=== PATIENT | male | born 1935 | race Caucasian/White ===

== ENCOUNTER 2020-10-30 09:22 | Emergency (ER) | payer OTHER ==
[~2020-10-30] VITALS: Ht 167.6 cm; Wt 68.0 kg
--- NOTE | 2020-10-30 09:11 | NUR ---
[employer] CALLED TO BEDSIDE
--- NOTE | 2020-10-30 09:17 | NUR ---
USING A GLIDESCOPE PATIENT SUCCESSFULLY INTUBATED BY DR. BRIAN MOJICA WITH AN ENDOTRACHEAL #7.5 SECURED AT 22cm TEETH/GUM LINE WITH AN ANCHOR FAST CUFF PRESSURE INFLATED WITH 8cc VIA A 10cc SYRINGE PLACEMENT CONFIRMED WITH A CO2 DETECTOR (YELLOW) AUSCULTATION BILATERAL LUNGS MOSER APEX TO BASES WITH GOOD AERATION THROUGHOUT CXR TO FOLLOW Addendum: 10/30/20 at 1132 by Kelvin Fregoso RT ETT PLACEMENT 24cm
--- NOTE | 2020-10-30 09:22 | NUR ---
AT 0912 PT TAKEN TO ER BED 10. RT, RN, AT BEDSIDE.
--- NOTE | 2020-10-30 09:22 | NUR ---
0913-PT PAD PLACED, CRASH CART AT PT BEDSIDE, PT INTUBATED AT 0917 NO RX PRIOR TO INTUBATION PER MD. AT 0920 ATIVAN 1MG AND FENTANYL 50MCG ORDERED AND GIVEN. IV ESTABLISHED TO RIGHT AC 20G AND RIGHT HAND 20G BLOOD DRAWN. WALKED TO LAB.
[2020-10-30] MEDS ORDERED: LORazepam 2 MG/ML VIAL IVP ONE (09:25)
[2020-10-30] MEDS ORDERED: fentaNYL citrate 0.05 MG/ML VIAL IVP ONE ×2 (09:25→12:00)
--- NOTE | 2020-10-30 09:25 | NUR ---
XRAY AT PT BEDSIDE.
--- NOTE | 2020-10-30 09:28 | NUR ---
POST INTUBATION PLACED ON A [employer] VENTILATOR PLUGGED INTO RED OUTLET TOLERATING WELL WITHOUT ADVERSE REACTIONS NOTED TO AN ENDOTRACHEAL TUBE #7.5 SECURED AT 24cm TEETH/GUM LINE WITH AN ANCHOR FAST CUFF PRESSURE CHECKED NOTED AMBU BAG NOTED AT BEDSIDE SEDATED NO DISTRESS NOTED EQUAL CHEST RISE AIRWAY PATENT DR. BRIAN MOJICA REVIEWED VENTILATOR SETTINGS NO CHANGED MADE
[2020-10-30 09:36] VITALS: BP 158/80
[2020-10-30] MEDS ORDERED: PROPOFOL 1000 MG/100 ML PREMIX 100 ML IV ONE ×4 (09:50→23:47)
--- NOTE | 2020-10-30 09:58 | NUR ---
85 Y/O MALE BIBA FROM PARKING LOT. PT DROVE PT TO ER IN CAR, STATED PT BECAME ALOC AND HAD SOB UPON ARRIVING. PT HAS A STRONG PULSE AT FEMORAL, CAROTID, AND RADIAL SITE, SOME SOB NOTED. , RT AT PT BEDSIDE. PMH: UNOBTAINABLE ALLERGIES: UNOBTAINABLE
[2020-10-30 10:00] LABS: BASOPHILS % (AUTO) 0.2 % (0.0-2.0); EOSINOPHILS # (AUTO) 0.2 K/uL (0-0.4); EOSINOPHILS % (AUTO) 1.5 % (0.0-4.0); HEMATOCRIT 43.1 % (36-52); HEMOGLOBIN 14.2 g/dL (12.0-18.0); LYMPHOCYTES # (AUTO) 5.8 K/uL (2.0-11.5); LYMPHOCYTES % (AUTO) 41.4 % (20.5-51.1); MEAN CORPUSCULAR HEMOGLOBIN 34 pg (27-31); MEAN CORPUSCULAR HGB CONC 33 g/dL (33-37); MEAN CORPUSCULAR VOLUME 102.9 fL (80-94); MONOCYTES # (AUTO) 1.5 K/uL (0.8-1.0); MONOCYTES % (AUTO) 10.4 % (1.7-9.3); NEUTROPHILS # (AUTO) 6.6 K/uL (1.8-7.7); NEUTROPHILS % (AUTO) 46.5 % (42.2-75.2); PLATELET COUNT (AUTO) 242 K/uL (140-450); RED BLOOD CELL COUNT(AUTO) 4.19 MIL/uL (4.20-6.10); RED CELL DISTRIBUTION WIDTH 14.2 % (11.6-13.7); WHITE BLOOD COUNT (AUTO) 14.1 K/uL (4.8-10.8)
[2020-10-30 10:20] LABS: PROTHROMBIN TIME 10.1 secs (10.8-13.4)
[2020-10-30 10:24] LABS: ALBUMIN 3.5 g/dL (3.4-5.0); ANION GAP 20.5 (8-16); ASPARTATE AMINOTRANSFERASE 15 U/L (15-37); CARBON DIOXIDE 17.9 mmol/L (21-32); CHLORIDE 108 mmol/L (98-107); CREATININE 1.5 mg/dL (0.6-1.3); GLUCOSE 148 mg/dL (74-106); LIPASE 117 U/L (73-393); POTASSIUM 3.4 mmol/L (3.5-5.1); SODIUM SERUM 143 mmol/L (136-145); TOTAL BILIRUBIN 0.6 mg/dL (0.0-1.0); UREA NITROGEN, BLOOD 20 mg/dL (7-18)
--- NOTE | 2020-10-30 10:26 | NUR ---
TRANSFERRED TO RADIOLOGY FOR CT SCAN OF HEAD REMOVED FORM VENTILATOR PLACED ON SUPPLEMENTAL OXYGEN AT 15 LPM VIA E-TANK (ADEQUATE PSI) TO HME/INLINE SUCTION CATHETER/ENDOTRACHEAL TUBE BAG DEPRESSION EVERY SIX SECONDS THROUGHOUT TRANSFER AND PROCEDURE TOLERATED WELL WITHOUT ADVERSE REACTIONS NOTED SATURATION 99%-100% HR 60
[2020-10-30 10:37] LABS: APPEARANCE,URINE CLEAR (CLEAR); BILIRUBIN,URINE NEGATIVE (NEGATIVE); BLOOD, URINE NEGATIVE (NEGATIVE); COLOR,URINE YELLOW (YELLOW); LEUKOCYTE ESTERASE ,URINE NEGATIVE (NEGATIVE); NITRITE, URINE NEGATIVE (NEGATIVE); PH,URINE 5.5 (5.0-9.0); UGLUCOSE NEGATIVE (NEGATIVE)
--- NOTE | 2020-10-30 10:42 | NUR ---
PT TAKEN TO CT VIA GURNEY ACCOMPANIED WITH RT AND RN.
[2020-10-30] MEDS ORDERED: DEXAMETHASONE 10 MG/ML VIAL IVP ONE (11:05)
[2020-10-30] MEDS ORDERED: levETIRAcetam 1,000 MG in NACL 0.9% 100 ML IV ONE (11:05)
[2020-10-30 11:30] VITALS: BP 166/74
--- NOTE | 2020-10-30 11:30 | NUR ---
SEDATED NO DISTRESS NOTED GOOD CHEST RISE FEW RALES LLL CLEAR [place] LML RIGHT SIDE DEEP TRACHEAL SUCTION FOR MINUTE RED/YELLOW SECRETION UNABLE TO OBTAIN SUFFICIENT AMOUNT OF SPUTUM FOR VAP PROTOCOL
--- NOTE | 2020-10-30 11:42 | NUR ---
RT AT PT BEDSIDE FOR ABGS.
--- NOTE | 2020-10-30 12:07 | NUR ---
REVIEWED ABG SAMPLE REPORT WITH DR. BRIAN BACON NO NEW ORDERS
[2020-10-30 13:45] VITALS: BP 166/74
--- NOTE | 2020-10-30 13:45 | NUR ---
SEDATED NO DISTRESS NOTED EQUAL CHEST RISE GOOD AERATION THROUGHOUT BILATERAL LUNG FIELD AIRWAY PATENT UNABLE TO OBTAIN SPUTIM FOR VAP PROTOCOL Addendum: 10/30/20 at 1356 by Kelvin Fregoso RT REVIEWED ABG SAMPLE REPORT SATURATION 100% ON FIO2 OF 100% PEEP 5cmH2O DECREASED FIO2 TO 50% DEN NOTIFIED
--- NOTE | 2020-10-30 13:58 | NUR ---
RT AT PT BEDSIDE, VENT SETTINGS CHANGED TO 50% FIO2. MD MADE AWARE. VSS. WILL CONTINUE TO MONITOR.
--- NOTE | 2020-10-30 14:40 | NUR ---
PT RESTING SUPINE, EYES CLOSED, RASS -4 VSS WILL CONTINUE TO MONITOR.
--- NOTE | 2020-10-30 15:59 | NUR ---
PT EYES CLOSED, VISIBLE EQUAL RISE AND FALL OF CHEST, VSS, WILL CONTINUE TO MONITOR.
[2020-10-30] MEDS ORDERED: BUDE9TAB PO (16:08)
[2020-10-30] MEDS ORDERED: TERA5CAP8 PO (16:08)
[2020-10-30] MEDS ORDERED: ASPI-1205 PO (16:08)
[2020-10-30] MEDS ORDERED: CARV12.5 PO (16:08)
[2020-10-30] MEDS ORDERED: ATOR40TA PO (16:08)
--- NOTE | 2020-10-30 16:52 | NUR ---
PT RASS -4, VISIBLE EQUAL RISE AND FALL OF CHEST, VSS, WILL CONTINUE TO MONITOR.
[2020-10-30 17:38] VITALS: BP 137/76
--- NOTE | 2020-10-30 17:38 | NUR ---
STABLE NO DISTRESS NOTED GOOD CHEST RISE AIRWAY PATENT
--- NOTE | 2020-10-30 17:42 | NUR ---
RT AT PT BEDSIDE, DECREASED FI02 AT 40% PER RT. RASS -4, VSS, WILL CONTINUE TO MONITOR.
--- NOTE | 2020-10-30 18:00 | NUR ---
PT EYES CLOSED RASS-4, VISIBLE EQUAL RISE AND FALL OF CHEST, VSS, WILL CONTINUE TO MONITOR.
--- NOTE | 2020-10-30 18:22 | NUR ---
CHANGED PATIENT SHEETS AND INTO CLEAN GOWN, REPOSITIONED, VSS, WILL CONTINUE TO MONITOR.
--- NOTE | 2020-10-30 18:37 | NUR ---
EMPTIED 850CC OF CLEAR, YELLOW URINE NO SEDIMENT NOTED.
--- NOTE | 2020-10-30 18:56 | NUR ---
RT AT PT BEDSIDE FI02 LOWERED TO 30%, RASS-4, VSS, WILL CONTINUE TO MONITOR.
--- NOTE | 2020-10-30 19:19 | NUR ---
GAVE REPORT TO CORDELL VASQUEZ. TRANSFER OF CARE AT THIS TIME.
--- NOTE | 2020-10-30 19:19 | NUR ---
RECEIVED REPORT FROM AMARJIT LANDA, FOR CONTINUITY OF CARE.
--- NOTE | 2020-10-30 19:31 | NUR ---
SPOKE TO DR. CABALLERO FROM [facility] REGARDING PT INFORMATION. GAVE AN UPDATE REGARDING PT'S STATUS
--- NOTE | 2020-10-30 20:30 | NUR ---
PT IS SEDATED ON PROPOFOL DRIP. CHEST RISE AND FALL UNEVEN AND UNLABORED. NO APPARENT DISTRESS AT THIS TIME. RASS SCORE OF -3
[2020-10-30] MEDS ORDERED: levETIRAcetam 100 MG/ML VIAL IV ONE (21:13)
[2020-10-30] MEDS: levETIRAcetam 500 MG in NACL 0.9% 100 ML IV SCH (21:27)
--- NOTE | 2020-10-30 21:30 | NUR ---
PT IS SEDATED ON PROPOFOL DRIP. CHEST RISE AND FALL UNEVEN AND UNLABORED. NO APPARENT DISTRESS AT THIS TIME. RASS SCORE OF -3
--- NOTE | 2020-10-30 22:30 | NUR ---
PT IS SEDATED ON PROPOFOL DRIP. CHEST RISE AND FALL UNEVEN AND UNLABORED. NO APPARENT DISTRESS AT THIS TIME. RASS SCORE OF -3
--- NOTE | 2020-10-30 23:30 | NUR ---
PT IS SEDATED ON PROPOFOL DRIP. CHEST RISE AND FALL UNEVEN AND UNLABORED. NO APPARENT DISTRESS AT THIS TIME. WILL CONTINUE TO MONITOR. RASS SCORE OF -3
[2020-10-30 23:46] VITALS: BP 159/81
--- NOTE | 2020-10-31 01:30 | NUR ---
PT IS SEDATED ON PROPOFOL DRIP. CHEST RISE AND FALL UNEVEN AND UNLABORED. NO APPARENT DISTRESS AT THIS TIME. WILL CONTINUE TO MONITOR. RASS SCORE OF -2
--- NOTE | 2020-10-31 02:30 | NUR ---
PT IS SEDATED ON PROPOFOL DRIP. CHEST RISE AND FALL UNEVEN AND UNLABORED. NO APPARENT DISTRESS AT THIS TIME. WILL CONTINUE TO MONITOR. RASS SCORE OF -1
--- NOTE | 2020-10-31 03:30 | NUR ---
PT IS SEDATED ON PROPOFOL DRIP. INCREASED DRIP RATE BECAUSE PT IS GETTING AGITATED. CHEST RISE AND FALL UNEVEN AND UNLABORED. NO APPARENT DISTRESS AT THIS TIME. WILL CONTINUE TO MONITOR. RASS SCORE OF +1
--- NOTE | 2020-10-31 05:10 | NUR ---
PT IS SEDATED ON PROPOFOL DRIP. DECREASED RATE OF PROPOFOL DRIP BACK TO 30MCG/KG/MIN CHEST RISE AND FALL UNEVEN AND UNLABORED. NO APPARENT DISTRESS AT THIS TIME. WILL CONTINUE TO MONITOR. RASS SCORE OF -3
--- NOTE | 2020-10-31 07:13 | NUR ---
Pt report given to ALFREDO LANDA. Transfer of care at this time.
[2020-10-31] MEDS ORDERED: NACL 0.9% 1,000 ML IV ONE (07:20)
[2020-10-31] MEDS ORDERED: PROPOFOL 1000 MG/100 ML PREMIX 100 ML IV ONE ×3 (07:20→14:45)
--- NOTE | 2020-10-31 07:30 | NUR ---
400CC OF CLEAR, YELLOW URINE DRAINED FROM FC AT THIS TIME.
[2020-10-31 07:49] VITALS: BP 147/81
--- NOTE | 2020-10-31 07:49 | NUR ---
RECEIVED ON A [employer] R860 VENTILATOR PLUGGED INTO RED OUTLET TOLERATING WELL WITHOUT ADVERSE REACTIONS NOTED TO AN ENDOTRACHEAL TUBE #7.0 SECURED AT 24cm TEETH/GUM LINE WITH AN ANCHOR FAST CUFF PRESSURE CHECKED NOTED AMBU BAG NOTED AT BEDSIDE SEDATED NO DISTRESS NOTED EQUAL CHEST RISE DEEP TRACHEAL SUCTION FOR SMALL SCATTERED THIN YELLOW SECRETIONS AIRWAY PATENT
[2020-10-31] MEDS: levETIRAcetam 500 MG in NACL 0.9% 100 ML IV SCH (08:56)
--- NOTE | 2020-10-31 09:23 | NUR ---
ORAL CARE AND REPOSITIONING (TURNED TO RIGHT SIDE) DONE WITH ASSISTANCE OF STUDENT NURSES.
--- NOTE | 2020-10-31 09:54 | NUR ---
UPDATED [facility], REGARDING NO AVAILABILITY OF A ROOM FOR TRANSFER TO [facility].
[2020-10-31 11:18] VITALS: BP 148/58
--- NOTE | 2020-10-31 11:18 | NUR ---
STABLE NO SOB NOTED GOOD CHEST RISE AND AERATION THROUGHOUT BILATERAL LUNG MOSER AIRWAY PATENT
--- NOTE | 2020-10-31 12:30 | NUR ---
PT IS SEDATED ON PROPOFOL DRIP 25 MCG/KG/MIN. CHEST RISE AND FALL EVEN AND UNLABORED. NO APPARENT DISTRESS AT THIS TIME. WILL CONTINUE TO MONITOR. RASS SCORE OF -3.
[2020-10-31 12:49] LABS: ANION GAP 12.8 (8-16); BASOPHILS % (AUTO) 0.1 % (0.0-2.0); CARBON DIOXIDE 23.4 mmol/L (21-32); CHLORIDE 111 mmol/L (98-107); EOSINOPHILS % (AUTO) 0.2 % (0.0-4.0); GLUCOSE 85 mg/dL (74-106); HEMATOCRIT 37.4 % (36-52); HEMOGLOBIN 12.6 g/dL (12.0-18.0); LYMPHOCYTES # (AUTO) 2.2 K/uL (2.0-11.5); LYMPHOCYTES % (AUTO) 16.2 % (20.5-51.1); MEAN CORPUSCULAR HEMOGLOBIN 34 pg (27-31); MEAN CORPUSCULAR HGB CONC 34 g/dL (33-37); MEAN CORPUSCULAR VOLUME 100.3 fL (80-94); MONOCYTES # (AUTO) 1.1 K/uL (0.8-1.0); MONOCYTES % (AUTO) 8.4 % (1.7-9.3); NEUTROPHILS # (AUTO) 10.3 K/uL (1.8-7.7); NEUTROPHILS % (AUTO) 75.1 % (42.2-75.2); PLATELET COUNT (AUTO) 193 K/uL (140-450); POTASSIUM 3.2 mmol/L (3.5-5.1); RED BLOOD CELL COUNT(AUTO) 3.73 MIL/uL (4.20-6.10); RED CELL DISTRIBUTION WIDTH 13.8 % (11.6-13.7); SODIUM SERUM 144 mmol/L (136-145); UREA NITROGEN, BLOOD 20 mg/dL (7-18); WHITE BLOOD COUNT (AUTO) 13.7 K/uL (4.8-10.8)
[2020-10-31 14:18] VITALS: BP 150/55
--- NOTE | 2020-10-31 14:18 | NUR ---
STABLE SEDATED GOOD CHEST RISE ENDOTRACHEAL SUCTION FOR LARGE THIN PALE YELLOW SECRETIONS AIRWAY PATENT
[2020-10-31] MEDS ORDERED: DEXAMETHASONE 4 MG/ML VIAL IVP ONE (14:20)
--- NOTE | 2020-10-31 15:20 | NUR ---
Patient to be transferred to [facility]. Is being transferred due to HIGHER LEVEL OF CARE. Receiving facility has accepting physician and available space. ER physician has signed transfer form. Patient or responsible libertarian has agreed to transfer and signed form. Patient belongings inventoried and will be sent with patient. Copy of nursing notes, lab reports, EKG, Physicians Orders and X-rays to be sent with patient. Report called to at receiving facility. [facility] ambulance service has been called for transfer. ETA is 1530.
[2020-10-31 16:10] VITALS: BP 162/87
[2020-10-31] MEDS ORDERED: DEXAMETHASONE 4 MG/ML VIAL IVP SCH (18:00)
[2020-10-31] MEDS ORDERED: levETIRAcetam 500 MG in NACL 0.9% 100 ML IV SCH (21:00)
== END 2020-10-31 16:10 | disposition short-term general hospital (02) ==
LOC: MED 09:22
DX: R55 Syncope and collapse (principal); Z20.822 Contact with and (suspected) exposure to COVID-19; R41.82 Altered mental status, unspecified; J96.90 Respiratory failure, unspecified, unspecified whether with hypoxia or hypercapnia; I10 Essential (primary) hypertension; Z95.1 Presence of aortocoronary bypass graft
CPT/HCPCS: 31500; 36415; 36600; 70450; 71045; 80048; 80053; 81003; 82803; 83605; 83690; 83880; 84484; 85025; 85610; 87040; 87070; 87086; 87205; 87426; 94002; 96361; 96365; 96367; 96375; 96376; 99291; J1100; J1953; J2060; J2704; J3010; 93005; Q0092